=== PATIENT | male | born 1955 | race African-American/Black ===

== ENCOUNTER 2016-12-20 22:14 | Inpatient (IN) | payer OTHER ==
[~2016-12-20] VITALS: Ht 182.9 cm; Wt 61.2 kg
[2016-12-20 23:18] LABS: HEMATOCRIT. 37.4 % (42.0-52.0); HEMOGLOBIN. 12.1 g/dL (14.0-18.0); MEAN CORPUSCULAR HEMOGLOBIN 31.7 pg (28.0-32.0); MEAN CORPUSCULAR HGB CONC 32.3 g/dL (31.0-37.0); MEAN PLATELET VOLUME 10.1 fl (7.4-10.4); PLATELET 224 x1000/uL (130-400); RED BLOOD CELL COUNT 3.82 mill/uL (4.7-6.1); RED CELL DISTRIBUTION WIDTH 18.5 % (11.6-14.6); WHITE BLOOD COUNT 12.3 x1000/uL (4.5-11.0)
[2016-12-20 23:19] LABS: ALBUMIN 2.3 g/dL (3.4-5.0); CALCIUM 9.3 mg/dL (8.5-10.1); CHLORIDE 96 mEq/L (98-107); DIFFERENTIAL COMMENT 1; INDEX HEMOLYSI 2 (1-3); INDEX ICTERIC 1 (1-4); INDEX LIPEMIC 1 (1-3)
[2016-12-20 23:21] LABS: ANION GAP 26; CARBON DIOXIDE 17 mEq/L (21-32); UREA NITROGEN BLOOD 68 mg/dL (7-21)
[2016-12-20 23:22] LABS: INR 1.2; PROTHROMBIN TIME 12.5 sec
[2016-12-20 23:22] LABS: ETHANOL BLOOD < 10 mg/dL
[2016-12-20 23:25] LABS: AMMONIA 122 uMol/L (<32)
[2016-12-20 23:26] LABS: ALANINE AMINOTRANSFERASE 30 IU/L (13-61); eGFR 53 mL/min (>60)
[2016-12-20 23:28] LABS: TROPONIN I < 0.02 ng/mL (0.00-0.04)
[2016-12-20] MEDS ORDERED: PIPERACILLIN/TAZ 3.375G PREMIX 50 ML IV ONE (23:45)
[2016-12-20] MEDS ORDERED: VANCOMYCIN 1 G PREMIX 200 ML IV ONE (23:45)
[2016-12-20] MEDS ORDERED: SODIUM CHLORIDE 0.9% 1000ML BAG (SEPSIS BOLUS) IV ONE (23:45)
[2016-12-21] VITALS (80 sets, daily range): BP systolic 66–144; BP diastolic 15–100
[2016-12-21 00:09] LABS: CLARITY URINE CLOUDY (CLEAR); COLOR URINE DARK YELLOW (YELLOW); GLUCOSE URINE NEGATIVE (NEGATIVE); KETONES URINE NEGATIVE (NEGATIVE); LEUKOCYTE ESTERASE URINE TRACE (NEGATIVE); NITRITE URINE POSITIVE (NEGATIVE); OCCULT BLOOD URINE 2+ (NEGATIVE); PROTEIN URINE 2+ (NEGATIVE); SPECIFIC GRAVITY URINE 1.028 (1.005-1.030)
[2016-12-21 00:30] LABS: BACTERIA URINE 1+; SQUAMOUS EPITHELIAL CELL URINE FEW /lpf (RARE/1+)
[2016-12-21] MEDS ORDERED: LORAZEPAM 2MG/ML CPJ IV ONE (00:30)
[2016-12-21 00:31] LABS: AMORPHOUS SEDIMENT URINE 1+ /lpf
[2016-12-21 00:39] LABS: PLATELET ESTIMATE NORMAL
[2016-12-21 00:43] LABS: *AMPHETAMINES SCREEN URINE NEGATIVE (NEGATIVE); *BARBITURATES SCREEN URINE NEGATIVE (NEGATIVE); *BENZODIAZEPINES SCREEN URINE NEGATIVE (NEGATIVE); *COCAINE SCREEN URINE NEGATIVE (NEGATIVE); CANNABINOID URINE SCREEN NEGATIVE (NEGATIVE); ECSTASY MDMA SCREEN URINE NEGATIVE (NEGATIVE); METHADONE URINE SCREEN NEGATIVE (NEGATIVE); OPIATES URINE SCREEN PRESUMTIVE POSITIVE (NEGATIVE); PHENCYCLIDINE URINE SCREEN NEGATIVE (NEGATIVE)
[2016-12-21] MEDS ORDERED: ACETAMINOPHEN 650MG SUPP PR PRN (06:00)
[2016-12-21] MEDS ORDERED: IOHEXOL-300 100 ML BOTTLE ONE (06:00)
[2016-12-21] MEDS ORDERED: SODIUM CHLORIDE 0.9% 10ML VIAL ONE (06:00)
[2016-12-21] MEDS ORDERED: DEXT 5%/0.9% NACL 1,000 ML IV SCH (06:30)
[2016-12-21] MEDS: MORPHINE SULFATE 4 MG/ML CPJ (NOT FOR IM USE) IV PRN ×2 (06:55→21:54)
[2016-12-21 07:33] LABS: HEMATOCRIT. 35.4 % (42.0-52.0); HEMOGLOBIN. 11.3 g/dL (14.0-18.0); MEAN PLATELET VOLUME 10.1 fl (7.4-10.4); PLATELET 226 x1000/uL (130-400); RED BLOOD CELL COUNT 3.65 mill/uL (4.7-6.1); RED CELL DISTRIBUTION WIDTH 18.8 % (11.6-14.6); WHITE BLOOD COUNT 17.9 x1000/uL (4.5-11.0)
[2016-12-21 07:43] LABS: CALCIUM 8.7 mg/dL (8.5-10.1)
[2016-12-21 07:55] LABS: DIFFERENTIAL COMMENT 1
[2016-12-21] MEDS ORDERED: DEXTROSE 50% WATER 50ML SYRINGE IV PRN (08:00)
[2016-12-21 08:18] LABS: BG BASE EXCESS -7.2 mmol/L (-2.0-2.0); BG CARBOXYHEMOGLOBIN 2.9 % (0.5-1.5); BG DEOXYHEMOGLOBIN 0.8 % (0.0-5.0); BG FRACTION INSPIRED OXYGEN 32; BG HCO3 ACT 16.6 mmol/L (22.0-26.0); BG METHEMOGLOBIN 0.3 % (0.0-1.5); BG OXYGEN SATURATION 99.2 % (92.0-98.5); BG PCO2 28.6 mmHg (35.0-45.0); BG PH 7.381 (7.350-7.450); BG PO2 116.5 mmHg (75.0-100.0); BG SAMPLE SITE RIGHT RADIAL; BG TOTAL HEMOGLOBIN 11.9 g/dL (12.0-18.0); BG VENT MODE NASAL CANNULA
[2016-12-21] MEDS ORDERED: INSULIN LISPRO 100 UNITS/ML SUBCUT SCH (08:30)
[2016-12-21] MEDS ORDERED: DILTIAZEM HCL 5MG/ML 5ML VIAL IV NR (08:30)
[2016-12-21] MEDS: VANCOMYCIN 500 MG PREMIX 100 ML IV SCH ×2 (08:52→22:35)
[2016-12-21] MEDS ORDERED: LEVOFLOXACIN 500MG PREMIX 100 ML IV SCH (09:00)
[2016-12-21] MEDS ORDERED: ENOXAPARIN 40MG/0.4ML SYR SUBCUT SCH (09:00)
[2016-12-21 09:34] LABS: PLATELET ESTIMATE NORMAL
[2016-12-21 09:35] LABS: ANISOCYTOSIS 2+; HOWELL-JOLLY BODIES FEW
[2016-12-21] MEDS: PIPERACILLIN/TAZ 3.375G PREMIX 50 ML IV SCH ×2 (09:41→17:13)
[2016-12-21] MEDS ORDERED: DILTIAZEM HCL 125 MG in DEXT 5% WATER 100 ML IV PRN (10:30)
[2016-12-21] MEDS: PROPOFOL 10MG/ML 100ML 100 ML IV PRN ×2 (10:33→17:49)
[2016-12-21 10:42] LABS: BG BASE EXCESS -9.9 mmol/L (-2.0-2.0); BG CARBOXYHEMOGLOBIN 2.5 % (0.5-1.5); BG DEOXYHEMOGLOBIN 0.3 % (0.0-5.0); BG FRACTION INSPIRED OXYGEN 60; BG HCO3 ACT 14.3 mmol/L (22.0-26.0); BG METHEMOGLOBIN 0.3 % (0.0-1.5); BG OXYGEN SATURATION 99.7 % (92.0-98.5); BG OXYHEMOGLOBIN 96.9 % (94.0-97.0); BG PCO2 26.8 mmHg (35.0-45.0); BG PH 7.345 (7.350-7.450); BG PO2 267.8 mmHg (75.0-100.0); BG SAMPLE SITE RIGHT RADIAL; BG TIDAL VOLUME(mL) 450 mL; BG TOTAL HEMOGLOBIN 11.7 g/dL (12.0-18.0); BG VENT MODE VENT - A/C; BG VENT RATE 14 set
[2016-12-21] MEDS ORDERED: LACTULOSE 300 ML in WATER FOR INJECTION,STERILE 700 ML PR SCH (11:00)
[2016-12-21] MEDS: BLOOD SUGAR DIAGNOSTIC STRIP TEST SCH ×3 (11:30→21:00)
[2016-12-21] MEDS: INSULIN LISPRO 100 UNITS/ML SUBCUT SCH ×3 (11:58→22:36)
[2016-12-21] MEDS ORDERED: SUCCINYLCHOLINE CHLORIDE 200MG/10ML VIAL IV ONE (14:00)
[2016-12-21] MEDS ORDERED: ETOMIDATE 2MG/ML 10ML VIAL IV ONE (14:00)
[2016-12-21 15:56] LABS: MAGNESIUM 2.5 mg/dL (1.8-2.4); THYROID STIMULATING HORMONE 0.98 uIU/mL (0.36-3.74)
[2016-12-21] MEDS: PHENYLEPHRINE 40 MG in DEXT 5% WATER 246 ML IV PRN ×2 (18:14→23:27)
[2016-12-21] MEDS ORDERED: NOREPINEPHRINE 16 MG in DEXT 5% WATER 234 ML IV PRN (21:30)
[2016-12-22] VITALS (11 sets, daily range): BP systolic 45–97; BP diastolic 12–74
[2016-12-22] MEDS: MORPHINE SULFATE 4 MG/ML CPJ (NOT FOR IM USE) IV PRN (01:52)
[2016-12-22] MEDS: PIPERACILLIN/TAZ 3.375G PREMIX 50 ML IV SCH (02:42)
[2016-12-22] MEDS: PHENYLEPHRINE 40 MG in DEXT 5% WATER 246 ML IV PRN (03:14)
[2016-12-22] MEDS ORDERED: DOPAMINE 400MG PREMIX 250 ML IV PRN ×2 (04:52→05:08)
[2016-12-22] MEDS ORDERED: DOPAMINE 400MG PREMIX 250 ML IV ONE (05:00)
[2016-12-22 05:29] LABS: HEMATOCRIT. 25.7 % (42.0-52.0); HEMOGLOBIN. 7.2 g/dL (14.0-18.0); MEAN CORPUSCULAR HEMOGLOBIN 31.3 pg (28.0-32.0); MEAN CORPUSCULAR HGB CONC 28.1 g/dL (31.0-37.0); MEAN CORPUSCULAR VOLUME 111.3 fL (80.0-94.0); MEAN PLATELET VOLUME 10.9 fl (7.4-10.4); PLATELET 146 x1000/uL (130-400); RED BLOOD CELL COUNT 2.31 mill/uL (4.7-6.1); RED CELL DISTRIBUTION WIDTH 20.2 % (11.6-14.6); WHITE BLOOD COUNT 22.3 x1000/uL (4.5-11.0)
[2016-12-22 05:44] LABS: DIFFERENTIAL COMMENT 1
[2016-12-22] MEDS ORDERED: DOPAMINE 800MG PREMIX 500 ML IV PRN (05:57)
[2016-12-22] MEDS ORDERED: DOPAMINE 800 MG IV PRN (06:15)
[2016-12-22] MEDS: BLOOD SUGAR DIAGNOSTIC STRIP TEST SCH (06:38)
[2016-12-22] MEDS: INSULIN LISPRO 100 UNITS/ML SUBCUT SCH (06:52)
[2016-12-22 07:12] LABS: ANISOCYTOSIS 2+; NUCLEATED RED BLOOD CELLS 1 /100 WBC; PLATELET ESTIMATE NORMAL
[2016-12-22] MEDS ORDERED: EPINEPHRINE 0.1MG/ML (1:10,000) 10ML SYR ONE (07:26)
[2016-12-22] MEDS ORDERED: LEVOFLOXACIN 500MG PREMIX 100 ML IV SCH (09:00)
== END 2016-12-22 07:14 | disposition expired | DRG 871 ==
LOC: ER 22:14 → MICUSO 12-21 01:49
PROVIDERS: ADMIT Hospitalist; ATTEND Hospitalist
PROC: 5A1935Z Respiratory Ventilation, Less than 24 Consecutive Hours (ICD-10-PCS; principal; 2016-12-21)
PROC: 0BH17EZ Insertion of Endotracheal Airway into Trachea, Via Natural or Artificial Opening (ICD-10-PCS; 2016-12-21)
PROC: 05H933Z Insertion of Infusion Device into Right Brachial Vein, Percutaneous Approach (ICD-10-PCS; 2016-12-21)
PROC: B54MZZA Ultrasonography of Right Upper Extremity Veins, Guidance (ICD-10-PCS; 2016-12-21)
DX: A41.9 Sepsis, unspecified organism (principal); G93.41 Metabolic encephalopathy; J96.00 Acute respiratory failure, unspecified whether with hypoxia or hypercapnia; K65.1 Peritoneal abscess; R65.21 Severe sepsis with septic shock; C16.9 Malignant neoplasm of stomach, unspecified; E72.20 Disorder of urea cycle metabolism, unspecified; E87.1 Hypo-osmolality and hyponatremia; E87.2 Acidosis; I47.1 Supraventricular tachycardia; N17.9 Acute kidney failure, unspecified; N39.0 Urinary tract infection, site not specified; C78.7 Secondary malignant neoplasm of liver and intrahepatic bile duct; I46.9 Cardiac arrest, cause unspecified; E11.9 Type 2 diabetes mellitus without complications; E87.5 Hyperkalemia; I11.9 Hypertensive heart disease without heart failure; K66.8 Other specified disorders of peritoneum; K72.90 Hepatic failure, unspecified without coma; R62.7 Adult failure to thrive; C76.2 Malignant neoplasm of abdomen; Z85.028 Personal history of other malignant neoplasm of stomach; Z85.89 Personal history of malignant neoplasm of other organs and systems; Z88.8 Allergy status to other drugs, medicaments and biological substances
CPT/HCPCS: 31500; 36415; 36569; 36600; 51702; 70450; 71010; 74177; 76937; 80048; 80053; 80305; 81001; 81003; 82140; 82375; 82805; 82962; 83605; 83735; 84443; 84484; 85025; 85379; 85610; 87040; 87086; 92950; 93005; 93306; 94002; 94003; 96365; 96366; 96367; 96375; 99291; A4216; C1725; G0482; J0171; J0330; J1265; J1650; J1815; J1956; J2060; J2270; J2370; J2543; J2704; J3370; J3490; J7030; J7042; J7060; Q9967; A4315